=== PATIENT | female | born 1980 | race Caucasian/White ===

== ENCOUNTER 2017-08-04 15:40 | Emergency (ER) | payer OTHER ==
[2017-08-04 15:57] VITALS: BP 141/75
--- NOTE | 2017-08-04 17:08 | UC ---
Throat Pain/Nasal Teddy HPI - HPI Summary HPI Summary: Patient presents with progressive right ear pain for the last 2-3 days. Patient also states she has sinus congestion postnasal drip. Patient does have a cough productive of yellow sputum. Patient's unsure if this is coming from her chest or postnasal drip. Patient has taken [id number] medications with little improvement. Patient denies fevers or chills but states she does have fatigue. Patient does reports contacts at work with similar. Patient denies a history of seasonal allergies. Denies chest pain shortness of breath. Medications medications reviewed this visit. - History of Current Complaint Chief Complaint: UCRespiratory Stated Complaint: CHEST CONGESTION, RIGHT EAR COMPLAINT Time Seen by Provider: 08/04/17 17:07 Hx Obtained From: Patient Hx Last Menstrual Period: 07/08/2017 ?: No Onset/Duration: Gradual Onset Pain Intensity: 4 Pain Scale Used: 0-10 Numeric Cough: Nonproductive Associated Signs & Symptoms: Positive: Sinus Discomfort. Negative: Fever - Allergies/Home Medications Allergies/Adverse Reactions: Allergies Allergy/AdvReac Type Severity Reaction Status Date / Time No Known Allergies Allergy Verified 08/04/17 15:57 PMH/Surg Hx/FS Hx/Imm Hx Previously Healthy: Yes - Surgical History Surgical History: None - Social History Occupation: Employed Full-time Lives: With Family Alcohol Use: None Substance Use Type: Marijuana Smoking Status (MU): Never Smoked Tobacco Review of Systems Constitutional: Negative ENT: Sore Throat, Ear Ache, Sinus Congestion All Other Systems Reviewed And Are Negative: Yes Physical Exam - Summary Physical Exam Summary: Vital Signs Reviewed: Yes A+Ox3, no distress Eyes: Conjunctiva Clear, MANUEL. EOM intact and full ENT: Hearing grossly normal TM right with ++ fluid, erythema, retraction; turbinates inflammed and boffy + PND. mmoist, uvula midline, no exudate, no erythema Neck: Positive: Supple Respiratory: Positive: No respiratory distress, No accessory muscle use + CTA throughout no w/r Cardiovascular: RRR nl s1, s2 no m/r CBT <2 sec Musculoskeletal Exam: JOSUE x 4 without difficulty Strength Intact, ROM Intact Neurological: Positive: Alert, + sensation throughout Psychological: Positive: Normal Response To Family Skin: Positive: no rash, no ecchymosis Triage Information Reviewed: Yes Vital Signs: Initial Vital Signs Temp 98.6 F 08/04/17 15:51 Pulse 75 08/04/17 15:51 Resp 16 08/04/17 15:51 BP 141/75 08/04/17 15:51 Pulse Ox 99 08/04/17 15:51 Throat Pain/Nasal Course/Dx - Course Course Of Treatment: Pt with progressive sinus congestion, right ear pain + right OM on exam. abx, flonase. secretion precaution. motrin/apap. return precautions. Pt with slight elevated BP -f/u with PCP - Differential Dx/Diagnosis Provider Diagnoses: right OM. sinusitits Discharge - Sign-Out/Discharge Documenting (check all that apply): Discharge/Admit/Transfer - Discharge Plan Condition: Stable Disposition: HOME Prescriptions: Amoxicillin PO (*) [Amoxicillin 875 MG (*)] 875 mg PO BID #20 tab Fluticasone NASAL SPRAY 50MCG* [Flonase NASAL SPRAY 50MCG*] 2 spray BOTH NARES DAILY #1 btl Patient Education Materials: Ear Infection (ED) Referrals: Dennise Ba MD [Primary Care Provider] - Additional Instructions: - Stay well hydrated. Drink plenty of non-alcoholic, non-caffinated beverages. - Alternate ibuprofen (Advil, Motrin) 600mg and Tylenol every 3 hours for pain or fever. Take with food. Do NOT take for more than 4-5 days. - These infections are spread by secretions - do NOT share eating or drinking utensils - clean items you share with other people such as cell phones, computer mouse, TV remote, computer tablets,etc. Once you have been antibiotics for 2 days, change your toothbrush and your pillowcase. - get plenty of restful sleep - take antibiotics as prescribed until gone - okay to take over the counter decongestant and cough medication - use nasal spray as prescribed - contact your doctor or return with questions or concerns - Billing Disposition and Condition Condition: STABLE Disposition: HOME
== END 2017-08-04 17:30 | disposition home or self-care (01) ==
LOC: UCEAST 15:40
DX: H66.91 Otitis media, unspecified, right ear (principal); J32.9 Chronic sinusitis, unspecified
CPT/HCPCS: 99202; G0463

== ENCOUNTER 2018-05-03 09:33 | Emergency (ER) | payer BC, OTHER ==
--- OUTSIDE RECORDS SUMMARY | 2018-05-03 10:41 | XMS REPORT | Continuity of Care Document ---
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 Payers Type Date Identification Numbers Payment Provider Subscriber Policy Number: [id number] [facility] Mar[facility] Victoria PayID: [id number] [address] [address] [place] [address] Advance Directives Description No Information Available Problems Date Description Provider Status Onset: 02/21/2014 Vitamin D deficiency Dennise Ba MD Active Onset: 11/29/2013 Family history of endocrine disorders Dennise Ba MD Active Onset: 11/29/2013 FH: Diabetes mellitus Dennise Ba MD Active Onset: 04/06/2018 Morbid obesity Dennise Ba MD Active Family History Date Family Member(s) Problem(s) Comments Father Hypertension : Father due to Amyotrophic (03/2014) Lateral Sclerosis Father Hypercholesterolemia Father Obesity has successfully lost weight Father Alzheimer's Disease Onset: (2011) Father Amyotrophic lateral sclerosis - (2011) (age 67 Years Mother DM2 Mother Obesity Mother Thyroid Disease autoimmune with antibodies, normal thy funciton Mother Asthma Children None First Sister Obesity Social History Type Date Description Comments Sex Unknown Marital Status Single Lives With Mother Occupation Currently Working [employer], works in [employer] ETOH Use Occasionally consumes alcohol Tobacco Use Start: Unknown Patient has never smoked Recreational Drug Use Never Used Drugs Smoking Status Reviewed: 04/06/18 Patient has never smoked Exercise Type/Frequency Exercises regularly goes to gym 5 days a week, exercise class; counselled 150min per week, 10k steps per day; 05/04/15 counselled 150min per week 10k steps perday.L[facility]; 04/02/16 counselled ; 04/03/17 counselled Allergies, Adverse Reactions, Alerts Description No Known Drug Allergies Medications Medication Date Status Form Strength Qnty SIG Indications Ordering Provider Terbinafine HCL 04/06/ Active Tablets 250mg 30tabs 1 by mouth B35.1 Rubi 2018 daily for Dennise frias, 12 weeks, MD need liver tests at 6 weeks Multivitamin 00/ Active Tablets qd Unknown Adults 0000 Fish Oil + D3 / Active Capsules 1000-1000m 1 by mouth Unknown 0000 g-Unit every night Metronidazole 04/13/ Hx Tablets 500mg 14tabs 1 by mouth Rubi 2017 - twice a day Dennise frias, 04/20/ 2017 No Active 04/03/ Hx Unknown Medications 2017 - 2017 Metrogel-Vagina 05/13/ Hx Gel 0.75% 70gm 1 Rubi nicole 2016 - applicator Dennise frias, 05/20/ inserted 2016 deeply into vagina at bedtime for 5 days Naproxen 01/10/ Hx Tablets 500mg 60tabs 1 by mouth S46.011A Rubi 2015 - twice a day Dennise frias, 04/02/ with food 2017 as needed No Active 05/04/ Hx Unknown Medications 2015 - 2015 D-2000 Maximum 11/30/ Hx Tablets 2000Unit 90tabs 1 by mouth Rubi Rodrgiuez 2013 - daily with Dennise frias 05/04/ main meal 2015 with meat fat oil Immunizations CPT Code Status Date Vaccine Lot # [id number] Given 11/29/2013 Tdap (Adacel) Ages 7 And Above Only [id number] Refused 04/06/2018 Flu Vaccine NOS [id number] Refused 04/03/2017 Flu Vaccine NOS [id number] Refused 04/02/2016 Influenza Virus Vaccine,Quadrivalent,Split,Preserv Free, 0.5mL,Im Vital Signs Date Vital Result Comment 04/06/2018 3:38pm Weight 255.00 lb Heart Rate 76 /min BP Systolic 132 mmHg BP Diastolic 86 mmHg Respiratory Rate 14 /min Height 63 inches 5'3" O2 % BldC Oximetry 97 % ra BMI (Body Mass Index) 45.2 kg/m2 04/03/2017 11:10am Weight 253.00 lb Heart Rate 76 /min BP Systolic 130 mmHg BP Diastolic 78 mmHg Respiratory Rate 16 /min Height 63 inches 5'3" BMI (Body Mass Index) 44.8 kg/m2 08/05/2016 4:49pm Weight 235.00 lb Heart Rate 76 /min BP Systolic 124 mmHg BP Diastolic 78 mmHg Respiratory Rate 16 /min Height 63 inches 5'3" 04/02/16 SA BMI (Body Mass Index) 41.6 kg/m2 04/02/2016 10:07am Weight 235.00 lb Heart Rate 74 /min BP Systolic 128 mmHg BP Diastolic 86 mmHg Respiratory Rate 14 /min Height 63 inches 5'3" 04/02/16 SA BMI (Body Mass Index) 41.6 kg/m2 01/11/2016 3:17pm Weight 236.00 lb Heart Rate 76 /min BP Systolic 128 mmHg BP Diastolic 74 mmHg Respiratory Rate 14 /min Height 63 inches 5'3" BMI (Body Mass Index) 41.8 kg/m2 05/04/2015 10:13am Weight 234.00 lb Heart Rate 74 /min BP Systolic 140 mmHg BP Diastolic 82 mmHg Respiratory Rate 18 /min Height 63 inches 5'3" BMI (Body Mass Index) 41.4 kg/m2 02/21/2014 10:18am Weight 263.00 lb Heart Rate 76 /min BP Systolic 120 mmHg BP Diastolic 80 mmHg Respiratory Rate 18 /min Height 63 inches 5'3" 11/29/2013 10:14am Weight 263.00 lb Heart Rate 78 /min BP Systolic 120 mmHg BP Diastolic 80 mmHg Respiratory Rate 18 /min Height 63 inches 5'3" 03/26/2005 2:44pm Weight 234.00 lb Heart Rate 84 /min BP Systolic 134 mmHg Large cuff, LEFT arm BP Diastolic 74 mmHg Large cuff, LEFT arm Respiratory Rate 18 /min Height 63 inches 5'3" Results Test Date Facility Test Result H/L Range Note Comprehensive Met 04/06/2018 [facility] Glucose 85 mg/dL N 74-106 1 Panel-FCMG (315)- - BUN 18 mg/dL N 7-18 Creatinine 1.1 mg/dL N 0.6-1.3 Glom Filtration Rate, Estimate 59 mL/min >60 If >60 mL/min >60 2 BUN/Creat 16.3 ratio Sodium 137 mmol/L N 136-145 Potassium 3.7 mmol/L N 3.5-5.1 Chloride 104 mmol/L N 98-107 Carbon Dioxide 28 mmol/L N 21-32 Anion Gap 5 mEq/L Low 8-16 Calcium 8.5 mg/dL N 8.5-10.1 Total Protein 7.7 g/dL N 6.4-8.2 Albumin 3.3 g/dL Low 3.4-5.0 Globulin 4.4 g/dL High 1.9-4.3 Alb/Glob 0.8 ratio Bilirubin,Total 0.3 mg/dL N 0.2-1.0 Sgot/Ast 10 U/L Low 15-37 3 SGPT/Alt 16 U/L N 12-78 Alkaline Phosphatase 79 U/L N 45-117 Lipid 04/06/2018 [facility] Cholesterol 173 mg/dL < 200 4 (315)- - Triglycerides 106 mg/dL <150 5 HDL Cholesterol 42 mg/dL >40 6 LDL-Cholesterol 110 mg/dL < 100 7 GC/Chlamydia By Dna 04/03/2017 [facility] Chlamydia by Dna NEGATIVE Negative Probe Probe GC by Dna Probe NEGATIVE Negative Laboratory test 04/03/2017 [facility] Thyroid Stim 2.89 uIU/mL N 0.30-4.20 8 finding (315)- - Hormone LC/MS Testosterone Total 25.4 ng/dL 10.0-55.0 9 Comprehensive Met 04/03/2017 [facility] Glucose 98 mg/dL N 74-106 Panel-FCMG (315)- - BUN 15 mg/dL N 7-18 Creatinine 1.0 mg/dL N 0.6-1.3 Glom Filtration Rate, Estimate >60 mL/min >60 If >60 mL/min >60 10 BUN/Creat 15.0 ratio Sodium 139 mmol/L N 136-145 Potassium 4.0 mmol/L N 3.5-5.1 Chloride 106 mmol/L N 98-107 Carbon Dioxide 29 mmol/L N 21-32 Anion Gap 4 mEq/L Low 8-16 Calcium 8.8 mg/dL N 8.5-10.1 Total Protein 7.5 g/dL N 6.4-8.2 Albumin 3.4 g/dL N 3.4-5.0 Globulin 4.1 g/dL N 1.9-4.3 Alb/Glob 0.8 ratio Bilirubin,Total 0.4 mg/dL N 0.2-1.0 Sgot/Ast 17 U/L N 15-37 SGPT/Alt 21 U/L N 12-78 Alkaline Phosphatase 74 U/L N 45-117 Vag/Cerv Culture -RL 04/03/2017 [facility] Vag/Cerv Culture SEE NOTE 11 Affirm 04/03/2017 [facility] Trichomonas Vaginalis Negative Negative Gardnerella Vaginalis Negative Negative Narcisa Species Negative Negative Laboratory 04/03/2017 [facility] Vitamin D,25-Hydroxy 29.5 Low 30.0-100.0 12 test finding (315)- - ng/mL Laboratory 04/03/2017 [facility] Dehydroepiandrosterone 57.5 57.3-279.2 test finding (315)- - Sulfate g/dL Wound 08/07/2016 [facility] Wound Culture SEE NOTE 13, Culture-RL 14 Laboratory 08/07/2016 [facility] Anaerobic Culture SPECIMEN 15 test finding [phone] DESCRI> Laboratory 04/02/2016 [facility] Pap Smear Thin Prep ok, bv 16 test finding Laboratory 04/02/2016 [facility] Vitamin B12 204 pg/mL 180-914 17 test finding TSH 3.14 uIU/mL 0.35-4.94 CBC With Auto Diff 04/02/2016 [facility] WBC 8.0 K/uL 4.1-11.0 RBC 4.83 M/uL 4.00-5.40 Hemoglobin 13.7 gm/dL 12.0-16.0 Hematocrit 41.4 % 36.0-47.0 MCV 85.6 fL 80.0-97.0 MCH 28.3 pg 27.0-32.0 MCHC 33.0 g/dL 32.0-36.0 RDW 13.3 % 11.5-14.5 PLT Count 272 K/ul 140-400 Neutrophil 76.0 % High 35.0-75.0 Lymphocyte 18.1 % 16.0-52.0 Monocyte 4.3 % 2.0-10.0 Eosinophil 1.2 % 0.0-5.0 Basophil 0.4 % 0.0-4.0 Abs Neutrophils 6.1 K/uL 2.1-8.0 Abs Lymphocytes 1.5 K/uL 0.8-5.5 Abs Monocytes 0.3 K/uL 0.1-1.0 Abs Eosinophils 0.1 K/uL 0.0-0.5 Abs Basophils 0.0 K/uL 0.0-0.3 Comprehensive Metabolic (CMP) 04/02/2016 [facility] Sodium 136 mmol/L 134- 142 Potassium 4.3 mmol/L 3.5-5.2 Chloride 103 mmol/L 97-109 Carbon Dioxide 29 mmol/L 24-34 Glucose 101 mg/dL 70-105 BUN 17 mg/dL 6-26 Creatinine 1.0 mg/dL 0.5-1.4 Calcium 8.8 mg/dL 8.5-10.2 Total Protein 6.7 g/dL 6.0-8.0 Albumin 3.8 g/dL 3.6-4.9 Globulin 2.9 g/dL 2.0-3.5 A/G Ratio 1.3 Ratio 1.0-2.2 Total Bilirubin 0.4 mg/dL 0.1-1.3 Alkaline Phosphatase 76 U/L 24-140 Alt 9 U/L 3-42 Ast 12 U/L 8-42 Anion Gap 8 mmol/L 6-14 [place] Egfr >60 >60 18 Non [place] Egfr >60 >60 19 Laboratory test 04/02/2016 [facility] Vit D,25 Hydroxy 13 ng/mL Low 31-100 finding Laboratory test 04/02/2016 [facility] Methylmalonic Acid 0.16 umol/L 20 finding (S) GC/Chlamydia By 04/02/2016 [facility] Chlamydia by Dna NEGATIVE Negative Dna Probe Probe GC by Dna Probe NEGATIVE Negative Laboratory test finding 05/04/2015 Done In [facility] Office Glucose 91 Laboratory test finding 11/30/2013 N2N/CCD Import Alb/Glob 0.8 ratio Albumin 3.2 g/dL Low 3.4-5.0 Alkaline Phosphatase 103 U/L 45-117 Anion Gap 8 mEq/L 8-16 BUN 16 mg/dL 7-18 BUN/Creat 14.5 ratio Bas% 0.3 % 0.0-1.1 Baso # 0.03 K/uL 0.0-0.1 Bilirubin,Total 0.4 mg/dL 0.2-1.0 Calcium 8.8 mg/dL 8.5-10.1 Carbon Dioxide 27 mmol/L 21-32 Chloride 108 mmol/L High 98-107 Creatinine 1.1 mg/dL 0.6-1.3 Eo% 1.4 % 0.0-6.6 Eos # 0.15 K/uL 0.0-0.5 Globulin 4.1 g/dL 1.9-4.3 Glom Filtration Rate, Estimate 60 mL/min >60 Glucose 104 mg/dL 74-106 Glycohemoglobin (A1c) 5.9 % 4.2-6.3 21 Hematocrit 40.5 % 36.0-46.1 Hemoglobin 13.7 gm/dL 11.6-15.8 If >60 mL/min >60 22 Lymph # 1.59 K/uL 0.8-3.4 Lymph % 15.4 % Low 17.0-46.1 Mean Cell Volume 86.4 fl 80.9-99.0 Mean Corpuscular HGB 29.2 pg 25.9-32.7 Mean Corpuscular HGB Conc 33.8 g/dL 30.8-34.3 Mean Platelet Volume 9.8 fL 8.9-12.4 [place] # 0.52 K/uL 0.3-0.9 [place] % 5.0 % 4.3-13.2 Neut# 8.06 K/uL High 1.0-7.0 Neut% 77.9 % High 40.4-72.8 Platelet Count 282 K/uL 155-360 Potassium 4.1 mmol/L 3.5-5.1 Red Blood Count 4.69 M/uL 3.90-5.40 Red Cell Distri Width %CV 13.7 % 11.7-14.4 Red Cell Distri Width SD 42.5 fl 3-47 SGPT/Alt 20 U/L 12-78 Sgot/Ast 11 U/L Low 15-37 Sodium 139 mmol/L 136-145 Thyroid Antithyroglobulin AB < 20 Iu/ml 0-40 Thyroid Peroxidase Antibodies 13 IU/mL 0-34 Thyroid Stim Hormone 2.73 uIU/mL 0.36-3.74 Total Protein 7.3 g/dL 6.4-8.2 Vitamin D,25-Hydroxy 21.0 ng/mL Low 30.0-100.0 23 White Blood Count 10.4 K/uL 3.1-10.7 eAG 123 mg/dL LDL Cholesterol Profile 11/30/2013 N2N/CCD Import Cholesterol 161 mg/dL 24 HDL Cholesterol 37 mg/dL 25 LDL-Cholesterol 106 mg/dL 26 Triglycerides 92 mg/dL 27 Laboratory test 03/26/2005 N2N/CCD Import Thyrotropin <0.3 U/L 0.0-1.0 28 finding Receptor Antibody 1 E66.01 2 Note: Persistent reduction for 3 months or more in an eGFR <60 mL/min/1.73 m2 defines CKD. Patients with eGFR values >/=60 mL/min/1.73 m2 may also have CKD if evidence of persistent proteinuria is present. The original MDRD equation for estimated GFR is not valid for patients less than 18 years of age. Additional information may be found at www.kdoqi.org. 3 Values below the stated reference ranges of AST and ALT can be seen in normal populations. Clinical correlation is suggested. 4 Reference Guidelines*: Desirable: ........... < 200 mg/dL Borderline High: ..... 200-239 mg/dL High: ................ >=240 mg/dL * The National Cholesterol Education Program (NCEP) 5 Reference Guidelines*: Normal: ............. < 150 mg/dL Borderline High: .... 150-199 mg/dL High: ............... 200-499 mg/dL Very High: .......... > 500 mg/dL * Source: National Cholesterol Education Program (NCEP) 6 Reference Guidelines*: Low HDL: ..... < 40 mg/dL Normal: ..... 40-60 mg/dL Desirable: ... > 60 mg/dL *The National Cholesterol Education Program(NCEP) 7 Reference Guidelines*: Optimal:........... <100 mg/dL Near Optimal....... 100-129 mg/dL Borderline High.... 130-159 mg/dL High............... 160-189 mg/dL Very High.......... >=190 mg/dL * Source: National Cholesterol Education Program (NCEP) 8 E55.9,L64.9,E66.01 9 This test was developed and its performance characteristics determined by [employer]. It has not been cleared or approved by the Food and Drug Administration. Performed at: [facility] [place] [id number] Mock Up Assembler: Rina Neal MD, Phone: [phone] Performed at: [address] [id number] Mock Up Assembler: Mert Lewis MD, Phone: [phone] 10 Note: Persistent reduction for 3 months or more in an eGFR <60 mL/min/1.73 m2 defines CKD. Patients with eGFR values >/=60 mL/min/1.73 m2 may also have CKD if evidence of persistent proteinuria is present. The original MDRD equation for estimated GFR is not valid for patients less than 18 years of age. Additional information may be found at www.kdoqi.org. 11 SPECIMEN DESCRIPTION VAGINAL SPECIMEN GROUP B STREP CULT. NEGATIVE: BETA HEMOLYTIC STREPTOCOCCI GROUP B B Y PCR CULTURE RESULTS MANY GARDNERELLA VAGINALIS NO NEISSERIA GONORRHOEAE ISOLATED REPORT STATUS FINAL 04/05/2017 Unless otherwise specified, testing performed by [facility] [address] [place] [address] 12 Vitamin D deficiency has been defined by the Freedom of Medicine and an Endocrine Society practice guideline as a level of serum 25-OH vitamin D less than 20 ng/mL (1,2). The Endocrine Society went on to further define vitamin D insufficiency as a level between 21 and 29 ng/mL (2). 1. IOM (Freedom of Medicine). 2010. Dietary reference intakes for calcium and D. [place]: The National Academies Press. 2. Sulaiman MF, Jeffery NC, Jhoan PACKER, et al. Evaluation, treatment, and prevention of vitamin D deficiency: an Endocrine Society clinical practice guideline. JCEM. 2010; 96(7):1911-30. Performed at: [facility] [place] [id number] Mock Up Assembler: Rina Neal MD, Phone: [phone] 13 right labia abscess 14 SPECIMEN DESCRIPTION ABSCESS SPECIAL REQUESTS NONE GRAM STAIN MODERATE (10 TO 25/LPF) WHITE BLOOD CELLS NO BACTERIA CULTURE RESULTS NO GROWTH AEROBICALLY REPORT STATUS FINAL 08/09/2016 Unless otherwise specified, testing performed by [facility] [address] [place] [address] 15 SPECIMEN DESCRIPTION ABSCESS SPECIAL REQUESTS NONE CULTURE RESULTS FEW PEPTOSTREPTOCOCCUS ANAEROBIUS REPORT STATUS FINAL 08/09/2016 16 [facility]. [address] [place] [address] CYTOLOGY REPORT Source of Specimen(s): Thin Prep Cervical / Endocervical Pap Smear - One Vial Date of Last Menstrual Period: 03/20 Other Clinical Conditions: Last Pap Smear: 2013 not sure normal per pt HPV ASSAY REQUESTED Specimen Adequacy SATISFACTORY FOR EVALUATION PRESENCE OF ENDOCERVICAL/TRANSFORMATION ZONE COMPONENT General Categorization NEGATIVE FOR INTRAEPITHELIAL LESION OR MALIGNANCY Interpretation NEGATIVE FOR INTRAEPITHELIAL LESION OR MALIGNANCY Shift in ana suggestive of bacterial vaginosis Reported: 04/04/2016 09:36 Electronically Signed Out By Aliyah SOLIS(ASCP) lgs ICD9 Code: Z01.419 Unless otherwise specified, testing performed by [facility] [address] [place] [id number] 17 today banana at 930 18 Concerning GFR Guidelines for Americans: Normal function or mild renal disease, if clinically at risk: >/=60 mL/min Moderately decreased: 30-59 Severely decreased: 15-29 Renal failure: <15 19 Concerning GFR Guidelines: Normal function or mild renal disease, if clinically at risk: >/=60 mL/min Moderately decreased: 30-59 Severely decreased: 15-29 Renal failure: <15 Glomerular Filtration Rate (GFR) is estimated based on the MDRD equation, which assumes a steady state for creatinine as recommended by the National Kidney Disease Education Program in conjunction with the National Institutes of Health and the National Kidney Foundation. Clinical conditions in which it may be necessary to measure GFR by using clearance methods include extremes of age and body size, severe malnutrition or obesity, diseases of skeletal muscle, paraplegia or quadriplegia, vegetarian diet, rapidly changing kidney function, and calculation of the dose of potentially toxic drugs that are excreted by the kidneys. 20 Reference range: 0.00 to 0.40 INTERPRETIVE INFORMATION: MMA Serum/Plasma, Vitamin B12 Status Test developed and characteristics determined by [facility]. See Compliance Statement B: [facility]/CS Performed by [facility], [address] [place] [address] www.[email or web address], Miguel Angel Gonzales MD, Lab. Director Unless otherwise specified, testing performed by [facility] [address] [place] [address] 21 Elevated levels of HbA1c suggest the need for more aggressive treatment of glycemia. The [place] Diabetes Association recommends that a primary goal of therapy should be a HbA1c of <7% and that physicians should re-evaluate the treatment regimen in patients with HbA1c values consistently >8%. 22 Note: Persistent reduction for 3 months or more in an eGFR <60 mL/min/1.73 m2 defines CKD. Patients with eGFR values >/=60 mL/min/1.73 m2 may also have CKD if evidence of persistent proteinuria is present. The original MDRD equation for estimated GFR is not valid for patients less than 18 years of age. Additional information may be found at www.kdoqi.org. 23 Vitamin D deficiency has been defined by the Freedom of Medicine and an Endocrine Society practice guideline as a level of serum 25-OH vitamin D less than 20 ng/mL (1,2). The Endocrine Society went on to further define vitamin D insufficiency as a level between 21 and 29 ng/mL (2). 1. IOM (Freedom of Medicine). 2010. Dietary reference intakes for calcium and D. [place]: The National Academies Press. 2. Sulaiman MF, Jeffery RODRIGUEZ, Jhoan PACKER, et al. Evaluation, treatment, and prevention of vitamin D deficiency: an Endocrine Society clinical practice guideline. JCEM. 2010; 96(7):1911-30. Performed at: RN [facility] [address] [id number] Mock Up Assembler: Rina Neal MD, Phone: [phone] 24 Reference Guidelines*: Desirable: ........... < 200 mg/dL Borderline High: ..... 200-239 mg/dL High: ................ >=240 mg/dL * The National Cholesterol Education Program (NCEP) 25 Reference Guidelines*: Low HDL: ..... < 40 mg/dL Normal: ..... 40-60 mg/dL Desirable: ... > 60 mg/dL *The National Cholesterol Education Program(NCEP) 26 Reference Guidelines*: Optimal:........... <100 mg/dL Near Optimal....... 100-129 mg/dL Borderline High.... 130-159 mg/dL High............... 160-189 mg/dL Very High.......... >=190 mg/dL * Source: National Cholesterol Education Program ( NCEP) 27 Reference Guidelines*: Normal: ............. < 150 mg/dL Borderline High: .... 150-199 mg/dL High: ............... 200-499 mg/dL Very High: .......... 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, unspecified E55.9 Vitamin D deficiency, unspecified Z83.3 Family history of diabetes mellitus Z83.49 Family history of endo, nutritional and metabolic diseases Z68.41 Body mass index (BMI) 40.0-44.9, adult Z11.3 Encntr screen for infections w sexl mode of transmiss Office Visit 04/02/2016 10:00a [facility] Dennise Ba MD R53.83 Other fatigue Z01.419 Encntr for geriatrician exam (general) (routine) w/o abn findings Z68.41 Body mass index (BMI) 40.0-44.9, adult E55.9 Vitamin D deficiency, unspecified Z11.3 Encntr screen for infections w sexl mode of transmiss Office Visit 01/11/2016 3:00p [facility] Dennise Ba MD M25.511 Pain in RIGHT shoulder S46.011A Strain of musc/tend the rotator cuff of RIGHT shoulder, init Office Visit 05/04/2015 10:00a [facility] Dennise Ba MD Z00.01 Encounter for general adult medical exam w abnormal findings Z68.41 Body mass index (BMI) 40.0-44.9, adult M25.561 Pain in RIGHT knee L60.9 Nail disorder, unspecified Z71.89 Other specified counseling Plan of Treatment Future Appointment(s):04/08/2019 3:30 pm - Dennise Ba MD at [facility]2018 4:15 pm - Dennise Ba MD at [facility]04/06/2018 - Dennise Ba MDZ01.411 Encounter for gynecological examination (general) (routine)New Labs: Chlamydia & GC, Dna-FCMG, Ordered: 04/06/18Comments:Annual geriatrician exam, pap and hpv normal 03/2016, declined/deferred this year std screening suggested, chao try to give sampel Annual exam/physical is still recommended Monitor menses flow, if occur <q 21 days or last > 7 days or has breakthrough bleeding, these changes could be signs of endometrial problems such as polyps, cancer, or other problems. Imms reviewedtdap is current 2013 no need for pneumovax. flu vax recommended Mammo at 40-45 ROS normal, no risk for colon cancer identified. Healthy Lifestyle Encouraged: Encouraged healthy diet with meats simply prepared, fresh fruits and veg when able also simply prepared , whole grains, 3 dairies per day non fat. Recommend all patients consume a source of omega 3 fatty acids daily, such as almonds/walnuts/ground flax seed/ olive oil/fish like salmon,tuna. Encouraged daily exercise 30 - 60 min daily/ 150min per week. Encouraged at least 2-3 qrts total fluid per day with more for sweaty exercise. Target 7-8 hours of sleep at night. Work on your "happy factors" to decrease stress and enjoy life. Limit your alcohol to under 1 per day, no more than 3 in any one day, no more than 7 per week.Avoid tobacco use. An approach to healthy lifestyle will help reduce your risks for acute and chronic illness and you may enjoy life better!Follow up:labs schedule to do now ; next visit in 6 weeks recheck toes labs after visit; next visi tin 1 year for 30min annual geriatrician exam urine on kvjikklW80.0 Excessive and frequent menstruation with regular cycleComments:seek care if menses last longer than 7-8 days or there is excessive break through oxmmxktbY63.9 Androgenic alopecia, unspecifiedComments:reviewed diff dx for androgenetic loss, infection, hormonal or other metabolic causes, labs reassuringmonitor hair loss, try to do a daily shower count if she can, see if it changes with timeE66.01 Morbid (severe) obesity due to excess caloriesComments:Morbid obesitythis increases your risk for sleep apnea, arthritis, premature cardiovascular disease,diabetes, etcDiscussed medications such as Contrave, Bupropion and surgical options, such as billy Munir, sleeve gastrectomy, discussed in detailshe prefers to continue diet and exercise referral to dieticianReferral:[facility],E55.9 Vitamin D deficiency, unspecifiedComments:Pt with vit D deficiency on replacement, check levels with next labs. Continue replacement and recheck periodially. Be certain to take your vit d with your main meal that has meat/ fat/oil as this is fat soluble. New recomended goals are levels 40 - 85Z83.3 Family history of diabetes mellitusComments:fam history diabetes-- Please monitor for symptoms of diabetes, such as polydipsia(thirst/drinking alot ), polyuria(urinating alot, eneida at night), fatigue, or concerns. Encourage healthy diet, daily exercise, weight loss to get to rzvlwoJ76.49 Family history of other endocrine, nutritional and metabolicComments:fam history thyroid disease Please watch for symptoms of underactive thyroid such as weight gain, fatigue, constipation, cold, changes in hair, skin nails. Also watch for over active thyroid such as weight loss, feeling hot, fatigue, tremors, sweats, diarrhea, etc. Seek care if symptoms are occurringfor thyroid evaluation.B35.1 Tinea unguiumNew Medication:Terbinafine HCL 250 mg - 1 by mouth daily for 12 weeks, need liver tests at 6 weeksComments:onychomycosisReviewed issues with nail onychomycosis with pt. Advised that insurances tend to not cover treatment unless pt has a risk for secondary infection such as diabetes or peripheral vascular disease, primarily due to the fact the infection can be treated but does tend to reoccur. Adivsed options of referral to engineering mgr, try topical penlac.Advised to treat we need to obtain a nail stain and culture, advised insurance may not approve until culture grows out. Recommend meds, cautioned liver se, would obtain baseline LFTs and at 6 weeks of therapy.Z71.89 Other specified counselingComments:Please get flu vax It helps reduce your risk for serious illness consequences of the flu like pneumonia and . It helps keep you workingIt helps protect more vulnerable people in our community likenewborns, elderly and chronically ill.Z68.42 Body mass index (BMI) 45.0-49.9 , adultComments:continue to work on healthy diet, regular exercise
[2018-05-03 10:47] VITALS: BP 142/73
--- NOTE | 2018-05-03 11:20 | UC ---
Respiratory Complaint HPI - HPI Summary HPI Summary: 37 yo female with nasal congestion/runny nose x 1 week mild otalgia no f/c no CP or SOB no myalgia some cough - History of Current Complaint Chief Complaint: UCRespiratory Stated Complaint: COUGH,CONGESTION Time Seen by Provider: 05/03/18 11:19 Hx Obtained From: Patient Hx Last Menstrual Period: 04/08/18 Onset/Duration: Gradual Onset, Lasting Days Timing: Constant Severity Initially: Mild Severity Currently: Mild Pain Intensity: 0 Pain Scale Used: 0-10 Numeric Character: Cough: Nonproductive Aggravating Factors: Nothing Associated Signs And Symptoms: Positive: Nasal Congestion, Sinus Discomfort - Allergies/Home Medications Allergies/Adverse Reactions: Allergies Allergy/AdvReac Type Severity Reaction Status Date / Time No Known Allergies Allergy Verified 05/03/18 10:44 PMH/Surg Hx/FS Hx/Imm Hx Previously Healthy: Yes - Surgical History Surgical History: None - Family History Known Family History: Positive: Hypertension, Diabetes - Social History Alcohol Use: Occasionally Substance Use Type: None Smoking Status (MU): Never Smoked Tobacco Review of Systems All Other Systems Reviewed And Are Negative: Yes Constitutional: Positive: Negative Skin: Positive: Negative Eyes: Positive: Negative ENT: Positive: Ear Ache, Nasal Discharge, Sinus Congestion Respiratory: Positive: Cough Cardiovascular: Positive: Negative Gastrointestinal: Positive: Negative Genitourinary: Positive: Negative Motor: Positive: Negative Neurovascular: Positive: Negative Musculoskeletal: Positive: Negative Neurological: Positive: Headache - with cough only Psychological: Positive: Negative Physical Exam Triage Information Reviewed: Yes Appearance: Well-Appearing, No Pain Distress, Well-Nourished Vital Signs: Initial Vital Signs Temp 98 F 05/03/18 10:43 Pulse 85 05/03/18 10:43 Resp 16 05/03/18 10:43 BP 142/73 05/03/18 10:43 Pulse Ox 98 05/03/18 10:43 Vital Signs Reviewed: Yes Eyes: Positive: Conjunctiva Clear ENT: Positive: Hearing grossly normal, Sinus tenderness. Negative: Nasal congestion, Nasal drainage, Tonsillar swelling, Tonsillar exudate, Trismus, Muffled voice, Hoarse voice Neck: Positive: Supple, Nontender, No Lymphadenopathy Respiratory: Positive: Lungs clear, Normal breath sounds, No respiratory distress, No accessory muscle use Cardiovascular: Positive: RRR, No Murmur Musculoskeletal: Positive: ROM Intact, No Edema Neurological: Positive: Alert Psychological Exam: Normal Skin Exam: Normal UC Diagnostic Evaluation - Laboratory O2 Sat by Pulse Oximetry: 98 - normal/not hypoxic Respiratory Course/Dx - Differential Dx/Diagnosis Provider Diagnosis: Viral upper respiratory infection, Acute serous otitis media of both ears, Elevated BP without diagnosis of hypertension Discharge - Sign-Out/Discharge Documenting (check all that apply): Patient Departure All imaging exams completed and their final reports reviewed: No Studies - Discharge Plan Condition: Stable Disposition: HOME Prescriptions: Fluticasone NASAL SPRAY 50MCG* [Flonase NASAL SPRAY 50MCG*] 2 spray BOTH NARES BID #1 btl Patient Education Materials: Upper Respiratory Infection (ED), Serous Otitis Media (ED) Referrals: Dennise Ba MD [Primary Care Provider] - 1 Week (if not better) - Billing Disposition and Condition Condition: STABLE Disposition: Home
== END 2018-05-03 11:35 | disposition home or self-care (01) ==
LOC: UCCORT 09:33
DX: J06.9 Acute upper respiratory infection, unspecified (principal); H65.03 Acute serous otitis media, bilateral; R03.0 Elevated blood-pressure reading, without diagnosis of hypertension
CPT/HCPCS: 99212; G0463

== ENCOUNTER 2019-01-26 16:11 | Emergency (ER) | payer BC ==
--- NOTE | 2019-01-26 17:03 | UC ---
Dizzy HPI HPI Summary: WHILE AT A SHOE STORE 2 DAYS AGO PATIENT LOOKED UP AND FELT DIZZY. SYMPTOMS IMPROVED BUT DID NOT FULLY RESOLVE WHEN SHE LOOKED BACK DOWN. SINCE THEN SHE HAS HAD INTERMITTENT DIZZINESS WHEN LOOKING UP. STATES OVERALL SHE IS IMPROVING. NO PROBLEMS WITH BALANCE. NO VISUAL DISTURBANCES, NAUSEA, CHEST PAIN, SHORTNESS OF BREATH, FEVER. NO HEARING LOSS OR DRAINAGE FROM THE EAR. NO URI SYMPTOMS. - History Of Current Complaint Chief Complaint: UCDizziness Stated Complaint: DIZZINESS Time Seen by Provider: 01/26/19 16:19 Hx Obtained From: Patient Hx Last Menstrual Period: Onset/Duration: Sudden Onset, Lasting Days, Still Present - BUT IMPROVED Severity Initially: Mild Severity Currently: Mild Pain Intensity: 0 Pain Scale Used: 0-10 Numeric Character: Lightheaded, Dizzy Aggravating Factor(s): Change In Head Position Alleviating Factor(s): Rest Associated Signs And Symptoms: Negative: Nausea, Vomiting, Diaphoresis, Tinnitus , Chest Pain, SOB, Palpitations, Unsteady Gait, Visual Changes - Allergies/Home Medications Allergies/Adverse Reactions: Allergies Allergy/AdvReac Type Severity Reaction Status Date / Time No Known Allergies Allergy Verified 01/26/19 16:24 PMH/Surg Hx/FS Hx/Imm Hx Previously Healthy: Yes - Surgical History Surgical History: None - Family History Known Family History: Positive: Hypertension, Diabetes Family History: EBENEZER'S - Social History Alcohol Use: Occasionally Substance Use Type: None Smoking Status (MU): Never Smoked Tobacco Review of Systems All Other Systems Reviewed And Are Negative: Yes Constitutional: Positive: Negative Skin: Positive: Negative Respiratory: Positive: Negative Cardiovascular: Positive: Negative Gastrointestinal: Positive: Negative Neurological: Positive: Other - DIZZY Physical Exam Triage Information Reviewed: Yes Appearance: Well-Appearing, No Pain Distress, Well-Nourished Vital Signs: Initial Vital Signs Temp 97.8 F 01/26/19 16:16 Pulse 90 01/26/19 16:16 Resp 16 01/26/19 16:16 BP 150/80 01/26/19 16:16 Pulse Ox 98 01/26/19 16:16 Vital Signs Reviewed: Yes Eyes: Positive: Conjunctiva Clear ENT: Positive: Hearing grossly normal, Pharynx normal, TMs normal Neck: Positive: Supple, Nontender, No Lymphadenopathy Respiratory Exam: Normal Cardiovascular Exam: Normal Abdomen Description: Positive: Soft Musculoskeletal: Positive: No Edema Neurological: Positive: Alert Psychological: Positive: Age Appropriate Behavior Skin: Negative: Rashes Diagnostics - EKG Cardiac Rate: NL - 84BPM Cardiac Rhythm: Sinus: Normal Ectopy: None ST Segment: Normal Dizzy Course/Dx - Course Course Of Treatment: EXAM NORMAL. PATIENT STATES THE DIZZINESS IS BETTER NOW THAN IT WAS YESTERDAY. SHE DENIES ANY HEARING LOSS, DIFFICULTY WITH BALANCE, HEADACHE, NAUSEA, VISUAL DISTURBANCE, CHEST PAIN, SHORTNESS OF BREATH. EKG UNREMARKABLE. ADVISED TO STAY WELL-HYDRATED AND RESTED AND FOLLOW-UP WITH HER PCP IF SHE IS NOT CONTINUING TO IMPROVE OVER THE NEXT FEW DAYS. BLOOD PRESSURE MODESTLY ELEVATED TODAY IN THE 140S TO 150S OVER 80S. THIS IS UNLIKELY TO BE CAUSING HER DIZZINESS. ADVISED TO KEEP A BLOOD PRESSURE LOG AND FOLLOW UP WITH HER PCP WITHIN A WEEK. TO THE ER WITHOUT FAIL IF HER DIZZINESS PERSISTS AND SHE HAS BLOOD PRESSURE HIGHER THAN 160/90. CBC, CMP, TSH DRAWN - Differential Dx/Diagnosis Provider Diagnosis: Dizziness Discharge ED - Sign-Out/Discharge Documenting (check all that apply): Patient Departure All imaging exams completed and their final reports reviewed: No Studies - Discharge Plan Condition: Stable Disposition: HOME Patient Education Materials: Dizziness (ED) Referrals: Dennise Ba MD [Primary Care Provider] - 1 Week Additional Instructions: Dizziness, non-specific: Dizziness means a sense of severe lightheadedness or instability. It can be a symptom of many different diseases, and is a side effect of many medicines. It can be caused by high blood pressure, or by low blood pressure. It can even be a symptom of anxiety. Dizziness can also happen to perfectly healthy people. Sometimes it's caused by over-exercise, mild dehydration, lack of sleep, or poor nutrition. Sometimes we find no explanation. We try to diagnose the exact cause of dizziness, such as dehydration, fever , diabetes, low heart rate, etc. Sometimes it's obvious right away. If not, we do testing. At this time, there's no evidence of a serious problem requiring hospitalization. You should get enough rest, exercise moderately, and get plenty of fluids. Continue your usual medicines unless the doctor has specifically told you to change them. When you feel the first symptoms suggesting you might faint, sit or squat down as quickly as you can. If symptoms don't go away quickly, lie down. Call the doctor or return if you are worsening or if new symptoms develop. GO TO ER WITHOUT FAIL IF YOU DEVELOP SHORTNESS OF BREATH, CHEST PAIN, NAUSEA, SWEATS, WORSENING DIZZINESS, BP GREATER THAN 160/90 OR ANY OTHER CONCERNING SYMPTOMS MONITOR YOUR BP AND FOLLOW-UP WITH YOUR PCP WITHIN 1 WEEK. BLOOD COUNT, METABOLIC PANEL AND THYROID TESTS DRAWN TODAY. - Billing Disposition and Condition Condition: STABLE Disposition: Home
[2019-01-26 17:27] VITALS: BP 130/87
[2019-01-27 11:24] LABS: ABS Basophils 0.1 10^3/ul (0-0.2); ABS Eosinophils 0.1 10^3/ul (0-0.6); ABS Lymphocytes 1.6 10^3/ul (1.0-4.8); ABS Monocytes 0.5 10^3/ul (0-0.8); ABS Neutrophils 6.1 10^3/ul (1.5-7.7); Eosinophil % 1.3 %; Hematocrit 37 % (35-47); Hemoglobin 12.3 g/dL (12.0-16.0); Lymphocyte % 19.5 %; Mean Corpuscular HGB Conc 33 g/dL (31-36); Mean Corpuscular Hemoglobin 27 pg (27-31); Mean Corpuscular Volume 83 fL (80-97); Mean Platelet Volume 8.8 fL (7.4-10.4); Nucleated Red Blood Cells % 0.4; Platelet Count 271 10^3/uL (150-450); Red Blood Count 4.49 10^6 /uL (3.70-4.87); Red Cell Distribution Width 15 % (10-15); White Blood Count 8.4 10^3/uL (3.5-10.8)
[2019-01-27 11:57] LABS: TSH (Thyroid Stimulating Horm) 3.36 mcIU/mL (0.34-5.60)
[2019-01-27 13:04] LABS: Albumin 3.7 g/dL (3.2-5.2); Calcium 8.9 mg/dL (8.6-10.3); Potassium 4.2 mmol/L (3.5-5.0); Total Bilirubin 0.3 mg/dL (0.2-1.0)
[2019-01-27 13:10] LABS: Albumin/Globulin Ratio 1.3 (1-3); BUN/Creatinine Ratio 11.5 (8-20); EGFR African American 47.3 (>60); EGFR Non-African American 39.1 (>60); Globulin 2.8 g/dL (2-4); Total Protein 6.5 g/dL (6.4-8.9)
--- NOTE | 2019-01-27 16:11 | UC ---
- Progress Note Progress Note: Lab results come back from January 26, 2019. Creatinine is elevated at 1.48; normal is 0.51 - 0.95. The rest of the CMP TSH and CBC are normal. Nursing to call patient inform them of the results that she should continue to drink plenty of fluids and get this rechecked with her primary care doctor if she is worse she should go the emergency department. Course/Dx - Diagnoses Provider Diagnoses: Dizziness Discharge ED - Sign-Out/Discharge Documenting (check all that apply): Patient Departure All imaging exams completed and their final reports reviewed: No Studies - Discharge Plan Condition: Stable Disposition: HOME Patient Education Materials: Dizziness (ED) Referrals: Dennise Ba MD [Primary Care Provider] - 1 Week Additional Instructions: Dizziness, non-specific: Dizziness means a sense of severe lightheadedness or instability. It can be a symptom of many different diseases, and is a side effect of many medicines. It can be caused by high blood pressure, or by low blood pressure. It can even be a symptom of anxiety. Dizziness can also happen to perfectly healthy people. Sometimes it's caused by over-exercise, mild dehydration, lack of sleep, or poor nutrition. Sometimes we find no explanation. We try to diagnose the exact cause of dizziness, such as dehydration, fever , diabetes, low heart rate, etc. Sometimes it's obvious right away. If not, we do testing. At this time, there's no evidence of a serious problem requiring hospitalization. You should get enough rest, exercise moderately, and get plenty of fluids. Continue your usual medicines unless the doctor has specifically told you to change them. When you feel the first symptoms suggesting you might faint, sit or squat down as quickly as you can. If symptoms don't go away quickly, lie down. Call the doctor or return if you are worsening or if new symptoms develop. GO TO ER WITHOUT FAIL IF YOU DEVELOP SHORTNESS OF BREATH, CHEST PAIN, NAUSEA, SWEATS, WORSENING DIZZINESS, BP GREATER THAN 160/90 OR ANY OTHER CONCERNING SYMPTOMS MONITOR YOUR BP AND FOLLOW-UP WITH YOUR PCP WITHIN 1 WEEK. BLOOD COUNT, METABOLIC PANEL AND THYROID TESTS DRAWN TODAY. - Billing Disposition and Condition Condition: STABLE Disposition: Home
== END 2019-01-26 17:27 | disposition home or self-care (01) ==
LOC: UCEAST 16:11
DX: R42 Dizziness and giddiness (principal)
CPT/HCPCS: 36415; 80053; 84443; 85025; 93005; 99211; G0463

== ENCOUNTER 2019-01-27 12:26 | Emergency (ER) | payer BC ==
[2019-01-27 13:54] LABS: ABS Lymphocytes 1.2 10^3/ul (1.0-4.8); ABS Monocytes 0.3 10^3/ul (0-0.8); ABS Neutrophils 6.7 10^3/ul (1.5-7.7); Eosinophil % 0.5 %; Hematocrit 41 % (35-47); Hemoglobin 13.5 g/dL (12.0-16.0); Lymphocyte % 14.1 %; Mean Corpuscular HGB Conc 33 g/dL (31-36); Mean Corpuscular Hemoglobin 27 pg (27-31); Mean Corpuscular Volume 83 fL (80-97); Mean Platelet Volume 7.1 fL (7.4-10.4); Platelet Count 276 10^3/uL (150-450); Red Blood Count 4.95 10^6 /uL (3.70-4.87); Red Cell Distribution Width 14 % (10-15); White Blood Count 8.2 10^3/uL (3.5-10.8)
[2019-01-27 14:00] LABS: INR 0.97 (0.82-1.09)
[2019-01-27 14:14] LABS: Albumin 3.8 g/dL (3.2-5.2); BUN/Creatinine Ratio 12.6 (8-20); Calcium 9.3 mg/dL (8.6-10.3); EGFR African American 65.9 (>60); EGFR Non-African American 54.4 (>60); Globulin 3.9 g/dL (2-4); Potassium 4.4 mmol/L (3.5-5.0); Total Bilirubin 0.3 mg/dL (0.2-1.0); Total Protein 7.7 g/dL (6.4-8.9)
--- NOTE | 2019-01-27 14:46 | ED ---
Dizziness - HPI Summary HPI Summary: This pt is a 38 y/o female [place] [facility] [place]/o dizziness since 3 days ago. Pt reports 3 days ago she woke up feeling well, went to work and then to the gym. She notes after the gym she went shoe shopping and while in the store when she looked up she felt dizzy. Dizziness is described as room spinning. Pt felt nauseous that day. Pt then went to bed and the next morning felt the same. Denies recent common cold symptoms, tinnitus, runny nose, or sore throat. Pt reports she has never had these symptoms in the past. Denies chest pain, SOB, palpitations, headache, blurry vision. Pt went to Urgent Care yesterday and was advised to come to the ED if blood pressure systolic is over 160. PMHx: asthma as a child. Denies hx of HTN. Pt does not take any medications. - History Of Current Complaint Chief Complaint: EDHypertension Stated Complaint: HIGH BP,DIZZINNESS PER PT Time Seen by Provider: 01/27/19 14:43 Hx Obtained From: Patient Onset/Duration: Still Present Timing: Days Severity Currently: Moderate Character: Room Spinning, Dizzy Aggravating Factor(s): Nothing Alleviating Factor(s): Nothing Associated Signs And Symptoms: Positive: Nausea. Negative: Tinnitus, Chest Pain , SOB, Palpitations, Visual Changes, Fever, Other: - NEGATIVE: recent common cold, runny nose, sore throat, headache - Allergies/Home Medications Allergies/Adverse Reactions: Allergies Allergy/AdvReac Type Severity Reaction Status Date / Time No Known Allergies Allergy Verified 01/27/19 12:36 PMH/Surg Hx/FS Hx/Imm Hx Endocrine/Hematology History: Denies: Hx Diabetes Cardiovascular History: Denies: Hx Hypertension Respiratory History: Reports: Hx Asthma - as a child Denies: Hx Chronic Obstructive Pulmonary Disease (COPD) Infectious Disease History: No Infectious Disease History: Denies: Traveled Outside the [place] in Last 30 Days - Family History Known Family History: Positive: Hypertension, Diabetes Family History: EBENEZER'S - Social History Alcohol Use: Occasionally Substance Use Type: Reports: None Smoking Status (MU): Never Smoked Tobacco Review of Systems Negative: Fever Negative: Blurred Vision Negative: Sore Throat, Nasal Discharge, Other - NEGATIVE: tinnitus Negative: Palpitations, Chest Pain Negative: Shortness Of Breath, Cough Positive: Nausea Neurological: Other - POSITIVE: dizziness Negative: Headache All Other Systems Reviewed And Are Negative: Yes Physical Exam - Summary Physical Exam Summary: VITAL SIGNS: Reviewed. GENERAL: Patient is a well-developed and obese female who is lying comfortable in the stretcher. Patient is not in any acute respiratory distress. HEAD AND FACE: No signs of trauma. No ecchymosis, hematomas or skull depressions. No sinus tenderness. EYES: PERRLA, EOMI x 2, No injected conjunctiva. No nystagmus. EARS: Hearing grossly intact. Ear canals and tympanic membranes are within normal limits. MOUTH: Oropharynx within normal limits. NECK: Supple, trachea is midline, no adenopathy, no JVD, no carotid bruit, no c- spine tenderness, neck with full ROM. CHEST: Symmetric, no tenderness at palpation LUNGS: Clear to auscultation bilaterally. No wheezing or crackles. CVS: Regular rate and rhythm, S1 and S2 present, no murmurs or gallops appreciated. ABDOMEN: Soft, non-tender. No signs of distention. No rebound no guarding, and no masses palpated. Bowel sounds are normal. EXTREMITIES: FROM in all major joints, no edema, no cyanosis or clubbing. NEURO: Alert and oriented x 3. No acute neurological deficits. Speech is normal and follows commands. SKIN: Dry and warm GCS: 15 Triage Information Reviewed: Yes Vital Signs On Initial Exam: Initial Vitals Temp Pulse Resp BP Pulse Ox 99.1 F 88 16 171/109 96 01/27/19 12:42 01/27/19 12:42 01/27/19 12:42 01/27/19 12:42 01/27/19 12:42 Vital Signs Reviewed: Yes Procedures - Sedation Patient Received Moderate/Deep Sedation with Procedure: No Diagnostics - Vital Signs Vital Signs Temp Pulse Resp BP Pulse Ox 01/27/19 12:42 99.1 F 88 16 171/109 96 - Laboratory Lab Results: Lab Results 01/27/19 01/27/19 01/27/19 Range/Units 13:40 13:40 13:40 WBC 8.2 (3.5-10.8) 10^3/uL RBC 4.95 H (3.70-4.87) 10^6 /uL Hgb 13.5 (12.0-16.0) g/dL Hct 41 (35-47) % MCV 83 (80-97) fL MCH 27 (27-31) pg MCHC 33 (31-36) g/dL RDW 14 (10-15) % Plt Count 276 (150-450) 10^3/uL MPV 7.1 L (7.4-10.4) fL Neut % (Auto) 81.6 % Lymph % (Auto) 14.1 % Hartley % (Auto) 3.4 % Eos % (Auto) 0.5 % Baso % (Auto) 0.4 % Absolute Neuts (auto) 6.7 (1.5-7.7) 10^3/ul Absolute Lymphs (auto) 1.2 (1.0-4.8) 10^3/ul Absolute Monos (auto) 0.3 (0-0.8) 10^3/ul Absolute Eos (auto) 0.0 (0-0.6) 10^3/ul Absolute Basos (auto) 0.0 (0-0.2) 10^3/ul Absolute Nucleated RBC 0.0 10^3/ul Nucleated RBC % 0.0 INR (Anticoag Therapy) 0.97 (0.82-1.09) Sodium 138 (135-145) mmol/L Potassium 4.4 (3.5-5.0) mmol/L Chloride 105 (101-111) mmol/L Carbon Dioxide 27 (22-32) mmol/L Anion Gap 6 (2-11) mmol/L BUN 14 (6-24) mg/dL Creatinine 1.11 H (0.51-0.95) mg/dL Est GFR ( Amer) 65.9 (>60) Est GFR (Non-Af Amer) 54.4 (>60) BUN/Creatinine Ratio 12.6 (8-20) Glucose 107 H (70-100) mg/dL Calcium 9.3 (8.6-10.3) mg/dL Total Bilirubin 0.30 (0.2-1.0) mg/dL AST 14 (13-39) U/L ALT 11 (7-52) U/L Alkaline Phosphatase 81 (34-104) U/L Troponin I 0.00 (<0.03) ng/mL Total Protein 7.7 (6.4-8.9) g/dL Albumin 3.8 (3.2-5.2) g/dL Globulin 3.9 (2-4) g/dL Albumin/Globulin Ratio 1.0 (1-3) Result Diagrams: 01/27/19 13:40 01/27/19 13:40 Lab Statement: Any lab studies that have been ordered have been reviewed, and results considered in the medical decision making process. - CT Brain CT CT Interpretation Completed By: Radiologist Summary of CT Findings: IMPRESSION: No intracranial mass or hemorrhage is noted. Dr. Garcia has reviewed this report. - EKG 15:34 Cardiac Rate: NL - at 82 bpm EKG Rhythm: Sinus Rhythm Summary of EKG Findings: EKG at 15:34 shows normal sinus rhythm at a rate of [address] elevations. Q waves in lead III. Dizzy Course/Dx - Course Assessment/Plan: This patient is a 38-year-old female who presents to the emergency department with a chief complaint of having dizziness and increased blood pressure. Blood test results without any significant abnormality except for creatinine 1.1, and glucose of 107. Troponin 0.00. Head CT impression: No acute Pathology. EKG shows a normal sinus rhythm without any significant ST elevation. Patient has a Q-wave present in lead 3. EKG is similar to previous EKG done on 01/26/19. In the ED course the patient was given Lopressor 10 mg IV since the patient was hypertensive. The patient also was given meclizine for dizziness. After all these medications the patients symptoms significantly improved. The patient was requested to follow up with her primary care physician in the next 2 days. The patient will take medications for blood pressure if needed as determined by her primary care physician. I discussed all the findings and test results with the patient. Patient was instructed to return to the emergency room immediately if any of the symptoms return worsens. Plan of care was discussed with the patient and understands and agrees. All questions were answered at patient satisfaction. There were no further complaints or concerns. Lung exam before discharge: CTA B/L. Good air exchange. No wheezing or crackles heard. CVS: S1 and S2 present. No murmurs appreciated. Patient is alert and oriented x 3. Patient is hemodynamically stable. Patient will be discharged home with follow up from her PCP in the next 2-3 days. She was given a prescription for Meclizine. - Diagnoses Provider Diagnoses: Dizziness, High blood pressure Discharge ED - Sign-Out/Discharge Documenting (check all that apply): Patient Departure - Discharge home - Discharge Plan Condition: Stable Disposition: HOME Prescriptions: Meclizine TAB* [Antivert 12.5 TAB*] 25 mg PO TID PRN #30 tab PRN Reason: Vertigo Patient Education Materials: Hypertension (ED), Dizziness (ED) Referrals: Dennise Ba MD [Primary Care Provider] - Additional Instructions: FOLLOW UP WITH YOUR PRIMARY CARE PROVIDER IN THE NEXT 2 DAYS. RETURN TO THE EMERGENCY DEPARTMENT FOR ANY WORSENING OR NEW SYMPTOMS. - Billing Disposition and Condition Condition: STABLE Disposition: Home - Attestation Statements Document Initiated by Scribe: Yes Documenting Scribe: Corina Cavanaugh Provider For Whom Shawn is Documenting (Include Credential): Terry Garcia MD Scribe Attestation: Corina Rutherford scribed for Terry Garcia MD on 01/27/19 at 2123. Scribe Documentation Reviewed: Yes Provider Attestation: The documentation as recorded by the Corina ramirez accurately reflects the service I personally performed and the decisions made by Terry chin MD Status of Scribe Document: Viewed
[2019-01-27] MEDS: Meclizine TAB* 12.5 MG PO ONE (15:49)
[2019-01-27] MEDS: Labetalol IV* 5 MG/ML 20 ML VIAL IV PUSH ONE (17:48)
[2019-01-27 17:51] VITALS: BP 118/80
== END 2019-01-27 17:27 | disposition home or self-care (01) ==
LOC: ED 12:26
DX: R42 Dizziness and giddiness (principal); R03.0 Elevated blood-pressure reading, without diagnosis of hypertension
CPT/HCPCS: 36415; 70450; 80053; 84484; 85025; 85610; 93005; 99283; A9270-GY